=== PATIENT | male | born 1970 | race Caucasian/White ===

== ENCOUNTER 2021-09-22 09:28 | Inpatient (IN) | payer OTHER ==
[2021-09-22] MEDS ORDERED: NICOTINE 10 MG CARTRIDGE (INHALER) IH PRN (10:08)
[2021-09-22] MEDS ORDERED: METHOCARBAMOL 500 MG TABLET PO PRN (10:08)
[2021-09-22] MEDS ORDERED: ACETAMINOPHEN 325 MG TABLET (FP) PO PRN ×2 (10:08)
[2021-09-22] MEDS ORDERED: MAGNESIUM HYDROX 2400MG/30ML ORAL SUSPENSION 30 ML CUP PO PRN (10:08)
[2021-09-22] MEDS ORDERED: LOPERAMIDE HCL 2 MG CAPSULE PO PRN (10:08)
[2021-09-22] MEDS ORDERED: MAGNESIUM CITRATE 300 ML BOTTLE PO PRN (10:08)
[2021-09-22] MEDS ORDERED: chlordiazePOXIDE HCL 25 MG CAPSULE PO PRN (10:08)
[2021-09-22] MEDS ORDERED: ONDANSETRON *ODT* 4 MG TABLET SL PRN (10:08)
[2021-09-22] MEDS ORDERED: MAG HYDROX/AL HYDROX/SIMETH 30 ML UNIT-DOSE CUP PO PRN (10:08)
[2021-09-22] MEDS ORDERED: BISMUTH SUBSALICYLATE 524 MG/30 ML PO PRN (10:08)
[2021-09-22] MEDS ORDERED: MENTHOL/PHENOL 1 EACH UD MM PRN (10:08)
[2021-09-22 10:42] VITALS: BMI 28.6
[2021-09-22] MEDS: chlordiazePOXIDE HCL 25 MG CAPSULE PO SCH ×4 (11:01→22:37)
[2021-09-22] MEDS: NICOTINE 14 MG/24 HOURS TOPICAL PATCH TD SCH (12:37)
[2021-09-22] MEDS: PRENATAL VITAMINS W/ FOLIC ACID TABLET (FP) PO SCH (12:38)
[2021-09-22] MEDS: hydrOXYzine PAMOATE 25 MG CAPSULE (FP) PO SCH ×3 (15:14→22:27)
[2021-09-22 17:18] LABS: CALCIUM 8.6 mg/dL (8.5-10.1)
[2021-09-22 17:19] LABS: ALBUMIN 3.8 g/dl (3.4-5.0); BLOOD UREA NITROGEN 7.3 mg/dL (7-18)
[2021-09-22 17:22] LABS: CREATININE 0.9 mg/dL (0.55-1.3)
[2021-09-22 17:23] LABS: BILIRUBIN,TOTAL 0.9 mg/dL (0.2-1)
[2021-09-22 17:24] LABS: TOT PROT 7.2 g/dl (6.4-8.2)
[2021-09-22 17:25] LABS: HEMATOCRIT 32.7 % (35.4-49); HEMOGLOBIN 11.5 GM/dL (11.7-16.9); MCH 34.8 pg (25.7-33.7); MCHC 35.1 g/dl (32.0-35.9); MEAN CELL VOLUME 99.1 fl (80-96); MEAN PLT VOLUME 8.3 fl (7.5-11.1); PLATELET COUNT 145 10^3/uL (134-434); RDW 13.1 % (11.9-15.9); WHITE BLOOD COUNT 4.9 K/mm3 (4.0-10.0)
[2021-09-22] MEDS ORDERED: TRIMETHOBENZAMIDE HCL 300 MG CAPSULE PO PRN (18:09)
[2021-09-22] MEDS: MELATONIN 5 MG TABLETS PO SCH ×2 (22:27→22:36)
[2021-09-22] MEDS: THIAMINE HCL 100 MG TABLET (FP) PO SCH ×2 (22:27→22:37)
[2021-09-23] MEDS: hydrOXYzine PAMOATE 25 MG CAPSULE (FP) PO SCH ×5 (06:26→22:35)
[2021-09-23] MEDS: chlordiazePOXIDE HCL 25 MG CAPSULE PO SCH ×4 (06:27→22:35)
[2021-09-23] MEDS: NICOTINE 14 MG/24 HOURS TOPICAL PATCH TD SCH (10:50)
[2021-09-23] MEDS: PRENATAL VITAMINS W/ FOLIC ACID TABLET (FP) PO SCH (10:51)
[2021-09-23] MEDS: THIAMINE HCL 100 MG TABLET (FP) PO SCH (22:35)
[2021-09-23] MEDS: MELATONIN 5 MG TABLETS PO SCH (22:35)
[2021-09-24] MEDS: hydrOXYzine PAMOATE 25 MG CAPSULE (FP) PO SCH ×5 (05:38→22:37)
[2021-09-24] MEDS: chlordiazePOXIDE HCL 25 MG CAPSULE PO SCH ×4 (05:39→22:36)
[2021-09-24] MEDS: NICOTINE 14 MG/24 HOURS TOPICAL PATCH TD SCH (10:42)
[2021-09-24] MEDS: PRENATAL VITAMINS W/ FOLIC ACID TABLET (FP) PO SCH (10:42)
[2021-09-24 14:08] LABS: SARS-CoV-2 NAA Not Detected (Not Detected)
[2021-09-24] MEDS: THIAMINE HCL 100 MG TABLET (FP) PO SCH (22:37)
[2021-09-24] MEDS: MELATONIN 5 MG TABLETS PO SCH (22:37)
[2021-09-25] MEDS ORDERED: chlordiazePOXIDE HCL 10 MG CAPSULE PO PRN
[2021-09-25] MEDS: chlordiazePOXIDE HCL 10 MG CAPSULE PO SCH ×4 (06:28→22:09)
[2021-09-25] MEDS: hydrOXYzine PAMOATE 25 MG CAPSULE (FP) PO SCH ×5 (06:28→22:08)
[2021-09-25] MEDS: PRENATAL VITAMINS W/ FOLIC ACID TABLET (FP) PO SCH (10:17)
[2021-09-25] MEDS: NICOTINE 14 MG/24 HOURS TOPICAL PATCH TD SCH (10:17)
[2021-09-25] MEDS: THIAMINE HCL 100 MG TABLET (FP) PO SCH (22:08)
[2021-09-25] MEDS: MELATONIN 5 MG TABLETS PO SCH (22:09)
[2021-09-26] MEDS: hydrOXYzine PAMOATE 25 MG CAPSULE (FP) PO SCH ×5 (06:16→22:28)
[2021-09-26] MEDS: chlordiazePOXIDE HCL 10 MG CAPSULE PO SCH ×2 (06:16→18:13)
[2021-09-26 09:42] LABS: GLUCOSE,FASTING 129 mg/dL (74-106)
[2021-09-26 09:45] LABS: SGOT/AST 86 U/L (15-37); SGPT/ALT 167 U/L (13-61)
[2021-09-26] MEDS: PRENATAL VITAMINS W/ FOLIC ACID TABLET (FP) PO SCH (10:12)
[2021-09-26] MEDS: NICOTINE 14 MG/24 HOURS TOPICAL PATCH TD SCH (10:13)
[2021-09-26] MEDS: IBUPROFEN 400 MG TABLET (FP) PO PRN ×2 (12:37→22:33)
[2021-09-26] MEDS: THIAMINE HCL 100 MG TABLET (FP) PO SCH (22:28)
[2021-09-26] MEDS: MELATONIN 5 MG TABLETS PO SCH (22:28)
[2021-09-27] MEDS ORDERED: chlordiazePOXIDE HCL 10 MG CAPSULE PO ONE (05:00)
[2021-09-27] MEDS: hydrOXYzine PAMOATE 25 MG CAPSULE (FP) PO SCH ×2 (06:33→10:46)
[2021-09-27 09:22] VITALS: BP 110/76; PULSE 93; TEMP 97
[2021-09-27] MEDS: NICOTINE 14 MG/24 HOURS TOPICAL PATCH TD SCH (10:45)
[2021-09-27] MEDS: PRENATAL VITAMINS W/ FOLIC ACID TABLET (FP) PO SCH (10:46)
== END 2021-09-27 13:59 | disposition other institution (70) | DRG 775 ==
LOC: YASAS 09:28 → Y6N 11:57
PROVIDERS: ADMIT Allergy & Immunology; ATTEND Allergy & Immunology
PROC: HZ2ZZZZ Detoxification Services for Substance Abuse Treatment (ICD-10-PCS; principal; 2021-09-22)
DX: F10.230 Alcohol dependence with withdrawal, uncomplicated (principal); R74.01 Elevation of levels of liver transaminase levels; Z59.00 Homelessness unspecified
CPT/HCPCS: 36415; 80053; 82947; 83036; 84450; 84460; 85027; 86780; 93005; 93010; C9803; U0003; U0005

== ENCOUNTER 2021-09-27 14:32 | Inpatient (IN) | payer OTHER ==
[~2021-09-27 14:32] MED LIST: LOPERAMIDE HCL 2 MG CAPSULE PO PRN; MAG HYDROX/AL HYDROX/SIMETH 30 ML UNIT-DOSE CUP PO PRN; MAGNESIUM CITRATE 300 ML BOTTLE PO PRN; MAGNESIUM HYDROX 2400MG/30ML ORAL SUSPENSION 30 ML CUP PO PRN; NICOTINE 10 MG CARTRIDGE (INHALER) IH PRN; P-EPHED 60MG/TRIPROLIDI 2.5MG TABLET PO PRN; guaiFENesin 200 MG/10 ML 10 ML UNIT-DOSE CUPS PO PRN
[2021-09-27] MEDS: hydrOXYzine PAMOATE 25 MG CAPSULE (FP) PO SCH ×3 (15:06→21:13)
[2021-09-27] MEDS: IBUPROFEN 400 MG TABLET (FP) PO PRN (16:06)
[2021-09-27] MEDS: MELATONIN 5 MG TABLETS PO SCH (21:13)
[2021-09-27] MEDS: THIAMINE HCL 100 MG TABLET (FP) PO SCH (21:13)
[2021-09-28] MEDS: hydrOXYzine PAMOATE 25 MG CAPSULE (FP) PO SCH ×5 (06:10→21:10)
[2021-09-28] MEDS: NICOTINE 7 MG/24 HOURS TOPICAL PATCH TD SCH (09:48)
[2021-09-28] MEDS: PRENATAL VITAMINS W/ FOLIC ACID TABLET (FP) PO SCH (09:48)
[2021-09-28] MEDS: ACETAMINOPHEN 325 MG TABLET (FP) PO PRN (21:08)
[2021-09-28] MEDS: THIAMINE HCL 100 MG TABLET (FP) PO SCH (21:10)
[2021-09-28] MEDS: MELATONIN 5 MG TABLETS PO SCH (21:10)
[2021-09-29] MEDS: hydrOXYzine PAMOATE 25 MG CAPSULE (FP) PO SCH ×5 (06:00→21:12)
[2021-09-29] MEDS: PRENATAL VITAMINS W/ FOLIC ACID TABLET (FP) PO SCH (09:57)
[2021-09-29] MEDS: NICOTINE 7 MG/24 HOURS TOPICAL PATCH TD SCH (09:57)
[2021-09-29] MEDS: ACETAMINOPHEN 325 MG TABLET (FP) PO PRN ×2 (09:58→21:57)
[2021-09-29] MEDS: MELATONIN 5 MG TABLETS PO SCH (21:12)
[2021-09-29] MEDS: THIAMINE HCL 100 MG TABLET (FP) PO SCH (21:12)
[2021-09-30] MEDS: ACETAMINOPHEN 325 MG TABLET (FP) PO PRN ×2 (06:47→21:21)
[2021-09-30] MEDS: hydrOXYzine PAMOATE 25 MG CAPSULE (FP) PO SCH ×3 (06:47→14:42)
[2021-09-30] MEDS: NICOTINE 7 MG/24 HOURS TOPICAL PATCH TD SCH (09:46)
[2021-09-30] MEDS: PRENATAL VITAMINS W/ FOLIC ACID TABLET (FP) PO SCH (09:46)
[2021-09-30] MEDS: IBUPROFEN 400 MG TABLET (FP) PO PRN (09:47)
[2021-09-30] MEDS: MELATONIN 5 MG TABLETS PO SCH (21:21)
[2021-09-30] MEDS: THIAMINE HCL 100 MG TABLET (FP) PO SCH (21:21)
[2021-10-01] MEDS: PRENATAL VITAMINS W/ FOLIC ACID TABLET (FP) PO SCH (09:52)
[2021-10-01] MEDS: NICOTINE 7 MG/24 HOURS TOPICAL PATCH TD SCH (09:52)
[2021-10-01] MEDS: IBUPROFEN 400 MG TABLET (FP) PO PRN (09:53)
[2021-10-01] MEDS: hydrOXYzine PAMOATE 25 MG CAPSULE (FP) PO PRN ×2 (09:53→21:15)
[2021-10-01] MEDS: MELATONIN 5 MG TABLETS PO SCH (21:15)
[2021-10-01] MEDS: THIAMINE HCL 100 MG TABLET (FP) PO SCH (21:15)
[2021-10-01] MEDS: ACETAMINOPHEN 325 MG TABLET (FP) PO PRN (21:15)
[2021-10-02] MEDS: PRENATAL VITAMINS W/ FOLIC ACID TABLET (FP) PO SCH (09:36)
[2021-10-02] MEDS: IBUPROFEN 400 MG TABLET (FP) PO PRN (09:37)
[2021-10-02] MEDS: NICOTINE 7 MG/24 HOURS TOPICAL PATCH TD SCH (09:37)
[2021-10-02] MEDS: hydrOXYzine PAMOATE 25 MG CAPSULE (FP) PO PRN ×2 (09:37→21:15)
[2021-10-02 18:07] LABS: SARS-CoV-2 NAA Not Detected (Not Detected)
[2021-10-02] MEDS: THIAMINE HCL 100 MG TABLET (FP) PO SCH (21:14)
[2021-10-02] MEDS: MELATONIN 5 MG TABLETS PO SCH (21:14)
[2021-10-03] MEDS: NICOTINE 7 MG/24 HOURS TOPICAL PATCH TD SCH (09:53)
[2021-10-03] MEDS: IBUPROFEN 400 MG TABLET (FP) PO PRN ×2 (09:53→21:12)
[2021-10-03] MEDS: PRENATAL VITAMINS W/ FOLIC ACID TABLET (FP) PO SCH (09:53)
[2021-10-03] MEDS: hydrOXYzine PAMOATE 25 MG CAPSULE (FP) PO PRN (09:53)
[2021-10-03] MEDS: MELATONIN 5 MG TABLETS PO SCH (21:10)
[2021-10-03] MEDS: THIAMINE HCL 100 MG TABLET (FP) PO SCH (21:11)
[2021-10-04] MEDS: NICOTINE 7 MG/24 HOURS TOPICAL PATCH TD SCH (09:41)
[2021-10-04] MEDS: PRENATAL VITAMINS W/ FOLIC ACID TABLET (FP) PO SCH (09:41)
[2021-10-04] MEDS: hydrOXYzine PAMOATE 25 MG CAPSULE (FP) PO PRN (09:42)
[2021-10-04] MEDS: IBUPROFEN 400 MG TABLET (FP) PO PRN ×2 (09:42→21:10)
[2021-10-04] MEDS: MELATONIN 5 MG TABLETS PO SCH (21:10)
[2021-10-04] MEDS: THIAMINE HCL 100 MG TABLET (FP) PO SCH (21:10)
[2021-10-05] MEDS: IBUPROFEN 400 MG TABLET (FP) PO PRN ×2 (07:05→21:17)
[2021-10-05] MEDS: PRENATAL VITAMINS W/ FOLIC ACID TABLET (FP) PO SCH (09:37)
[2021-10-05] MEDS: hydrOXYzine PAMOATE 25 MG CAPSULE (FP) PO PRN ×2 (09:37→21:18)
[2021-10-05] MEDS: NICOTINE 7 MG/24 HOURS TOPICAL PATCH TD SCH (09:37)
[2021-10-05] MEDS: THIAMINE HCL 100 MG TABLET (FP) PO SCH (21:18)
[2021-10-05] MEDS: MELATONIN 5 MG TABLETS PO SCH (21:18)
[2021-10-06] MEDS: NICOTINE 7 MG/24 HOURS TOPICAL PATCH TD SCH (09:44)
[2021-10-06] MEDS: PRENATAL VITAMINS W/ FOLIC ACID TABLET (FP) PO SCH (09:44)
[2021-10-06] MEDS: IBUPROFEN 400 MG TABLET (FP) PO PRN ×2 (09:45→21:09)
[2021-10-06] MEDS: hydrOXYzine PAMOATE 25 MG CAPSULE (FP) PO PRN ×2 (09:45→21:08)
[2021-10-06] MEDS: MELATONIN 5 MG TABLETS PO SCH (21:08)
[2021-10-06] MEDS: THIAMINE HCL 100 MG TABLET (FP) PO SCH (21:08)
[2021-10-07] MEDS: NICOTINE 7 MG/24 HOURS TOPICAL PATCH TD SCH (09:53)
[2021-10-07] MEDS: IBUPROFEN 400 MG TABLET (FP) PO PRN ×2 (09:54→21:13)
[2021-10-07] MEDS: PRENATAL VITAMINS W/ FOLIC ACID TABLET (FP) PO SCH (09:54)
[2021-10-07] MEDS: hydrOXYzine PAMOATE 25 MG CAPSULE (FP) PO PRN (09:54)
[2021-10-07] MEDS: MELATONIN 5 MG TABLETS PO SCH (21:12)
[2021-10-07] MEDS: THIAMINE HCL 100 MG TABLET (FP) PO SCH (21:12)
[2021-10-08] MEDS: PRENATAL VITAMINS W/ FOLIC ACID TABLET (FP) PO SCH (09:34)
[2021-10-08] MEDS: IBUPROFEN 400 MG TABLET (FP) PO PRN ×2 (09:35→21:04)
[2021-10-08] MEDS: NICOTINE 7 MG/24 HOURS TOPICAL PATCH TD SCH (09:36)
[2021-10-08] MEDS: MELATONIN 5 MG TABLETS PO SCH (21:04)
[2021-10-08] MEDS: THIAMINE HCL 100 MG TABLET (FP) PO SCH (21:04)
[2021-10-09] MEDS: PRENATAL VITAMINS W/ FOLIC ACID TABLET (FP) PO SCH (09:51)
[2021-10-09] MEDS: IBUPROFEN 400 MG TABLET (FP) PO PRN ×2 (09:51→22:16)
[2021-10-09] MEDS: NICOTINE 7 MG/24 HOURS TOPICAL PATCH TD SCH (09:52)
[2021-10-09] MEDS: THIAMINE HCL 100 MG TABLET (FP) PO SCH (22:15)
[2021-10-09] MEDS: MELATONIN 5 MG TABLETS PO SCH (22:16)
[2021-10-10] MEDS: PRENATAL VITAMINS W/ FOLIC ACID TABLET (FP) PO SCH (09:45)
[2021-10-10] MEDS: NICOTINE 7 MG/24 HOURS TOPICAL PATCH TD SCH (09:45)
[2021-10-10] MEDS: IBUPROFEN 400 MG TABLET (FP) PO PRN ×2 (09:46→21:19)
[2021-10-10] MEDS: MELATONIN 5 MG TABLETS PO SCH (21:20)
[2021-10-10] MEDS: THIAMINE HCL 100 MG TABLET (FP) PO SCH (21:20)
[2021-10-11] MEDS: PRENATAL VITAMINS W/ FOLIC ACID TABLET (FP) PO SCH (09:44)
[2021-10-11] MEDS: NICOTINE 7 MG/24 HOURS TOPICAL PATCH TD SCH (09:44)
[2021-10-11] MEDS: IBUPROFEN 400 MG TABLET (FP) PO PRN ×2 (09:44→21:15)
[2021-10-11] MEDS: THIAMINE HCL 100 MG TABLET (FP) PO SCH (21:14)
[2021-10-11] MEDS: MELATONIN 5 MG TABLETS PO SCH (21:15)
[2021-10-12] MEDS: NICOTINE 7 MG/24 HOURS TOPICAL PATCH TD SCH (09:45)
[2021-10-12] MEDS: PRENATAL VITAMINS W/ FOLIC ACID TABLET (FP) PO SCH (09:45)
[2021-10-12] MEDS: IBUPROFEN 400 MG TABLET (FP) PO PRN ×2 (09:46→21:18)
[2021-10-12] MEDS: THIAMINE HCL 100 MG TABLET (FP) PO SCH (21:18)
[2021-10-12] MEDS: hydrOXYzine PAMOATE 25 MG CAPSULE (FP) PO PRN (21:18)
[2021-10-12] MEDS: MELATONIN 5 MG TABLETS PO SCH (21:20)
[2021-10-13] MEDS: PRENATAL VITAMINS W/ FOLIC ACID TABLET (FP) PO SCH (10:01)
[2021-10-13] MEDS: NICOTINE 7 MG/24 HOURS TOPICAL PATCH TD SCH (10:01)
[2021-10-13] MEDS: IBUPROFEN 400 MG TABLET (FP) PO PRN ×2 (10:03→21:25)
[2021-10-13] MEDS: MELATONIN 5 MG TABLETS PO SCH (21:25)
[2021-10-13] MEDS: hydrOXYzine PAMOATE 25 MG CAPSULE (FP) PO PRN (21:25)
[2021-10-13] MEDS: THIAMINE HCL 100 MG TABLET (FP) PO SCH (21:25)
[2021-10-14] MEDS: PRENATAL VITAMINS W/ FOLIC ACID TABLET (FP) PO SCH (09:46)
[2021-10-14] MEDS: NICOTINE 7 MG/24 HOURS TOPICAL PATCH TD SCH (09:46)
[2021-10-14] MEDS: MELATONIN 5 MG TABLETS PO SCH (21:12)
[2021-10-14] MEDS: THIAMINE HCL 100 MG TABLET (FP) PO SCH (21:12)
[2021-10-15] MEDS: NICOTINE 7 MG/24 HOURS TOPICAL PATCH TD SCH (10:02)
[2021-10-15] MEDS: PRENATAL VITAMINS W/ FOLIC ACID TABLET (FP) PO SCH (10:02)
[2021-10-15] MEDS: IBUPROFEN 400 MG TABLET (FP) PO PRN ×2 (10:02→21:09)
[2021-10-15] MEDS: hydrOXYzine PAMOATE 25 MG CAPSULE (FP) PO PRN (21:09)
[2021-10-15] MEDS: THIAMINE HCL 100 MG TABLET (FP) PO SCH (21:09)
[2021-10-15] MEDS: MELATONIN 5 MG TABLETS PO SCH (21:09)
[2021-10-16] MEDS: NICOTINE 7 MG/24 HOURS TOPICAL PATCH TD SCH (09:44)
[2021-10-16] MEDS: PRENATAL VITAMINS W/ FOLIC ACID TABLET (FP) PO SCH (09:44)
[2021-10-16] MEDS: IBUPROFEN 400 MG TABLET (FP) PO PRN (09:45)
[2021-10-16] MEDS: ACETAMINOPHEN 325 MG TABLET (FP) PO PRN (21:04)
[2021-10-16] MEDS: MELATONIN 5 MG TABLETS PO SCH (21:04)
[2021-10-16] MEDS: THIAMINE HCL 100 MG TABLET (FP) PO SCH (21:04)
[2021-10-17 06:25] VITALS: BP 113/77; PULSE 72; TEMP 97.5
[2021-10-17] MEDS: PRENATAL VITAMINS W/ FOLIC ACID TABLET (FP) PO SCH (09:47)
[2021-10-17] MEDS: NICOTINE 7 MG/24 HOURS TOPICAL PATCH TD SCH (09:47)
== END 2021-10-17 13:30 | disposition home or self-care (01) | DRG 775 ==
LOC: YASAS 14:32 → Y5N 14:34
PROVIDERS: ADMIT Allergy & Immunology; ATTEND Allergy & Immunology
DX: F10.20 Alcohol dependence, uncomplicated (principal); Z59.00 Homelessness unspecified
CPT/HCPCS: 82962; C9803-CS; U0003; U0005

== ENCOUNTER 2022-01-16 08:59 | Inpatient (IN) | payer OTHER ==
[2022-01-16 10:18] VITALS: BMI 29.5
[2022-01-16] MEDS ORDERED: MAGNESIUM HYDROX 2400MG/30ML ORAL SUSPENSION 30 ML CUP PO PRN (11:49)
[2022-01-16] MEDS ORDERED: BENZOCAINE/MENTHOL (CHLORASEPTIC ) LOZENGE MM PRN (11:49)
[2022-01-16] MEDS ORDERED: IBUPROFEN 600 MG TABLET (FP) PO PRN (11:49)
[2022-01-16] MEDS ORDERED: chlordiazePOXIDE HCL 25 MG CAPSULE PO PRN (11:49)
[2022-01-16] MEDS ORDERED: METHOCARBAMOL 500 MG TABLET PO PRN (11:49)
[2022-01-16] MEDS ORDERED: BISMUTH SUBSALICYLATE 262 MG/15 ML BTL PO PRN (11:49)
[2022-01-16] MEDS ORDERED: DICYCLOMINE HCL 10 MG CAPSULE PO PRN (11:49)
[2022-01-16] MEDS ORDERED: MAG HYDROX/AL HYDROX/SIMETH 30 ML UNIT-DOSE CUP PO PRN (11:49)
[2022-01-16] MEDS ORDERED: NICOTINE 10 MG CARTRIDGE (INHALER) IH PRN (11:49)
[2022-01-16] MEDS ORDERED: MAGNESIUM CITRATE 300 ML BOTTLE PO PRN (11:49)
[2022-01-16] MEDS ORDERED: ACETAMINOPHEN 325 MG TABLET (FP) PO PRN ×2 (11:49)
[2022-01-16] MEDS ORDERED: IBUPROFEN 400 MG TABLET (FP) PO PRN (11:49)
[2022-01-16] MEDS ORDERED: LOPERAMIDE HCL 2 MG CAPSULE PO PRN (11:49)
[2022-01-16] MEDS ORDERED: ONDANSETRON *ODT* 4 MG TABLET SL PRN (11:49)
[2022-01-16] MEDS ORDERED: CALAMINE 8% TOPICAL LOTION 177 ML BOTTLE TP PRN (11:59)
[2022-01-16] MEDS: hydrOXYzine PAMOATE 25 MG CAPSULE (FP) PO SCH ×3 (13:16→23:06)
[2022-01-16] MEDS ORDERED: METOPROLOL TARTRATE 50 MG TABLET (FP) PO ONE (13:33)
[2022-01-16 21:12] VITALS: TEMP 97.1
[2022-01-16] MEDS ORDERED: MELATONIN 5 MG TABLETS PO SCH (22:00)
[2022-01-16] MEDS ORDERED: THIAMINE HCL 100 MG TABLET (FP) PO SCH (22:00)
[2022-01-16 22:24] VITALS: BP 175/100; PULSE 82
[2022-01-16] MEDS ORDERED: cloNIDine HCL 0.1 MG TABLET PO ONE (22:30)
[2022-01-16] MEDS ORDERED: chlordiazePOXIDE HCL 25 MG CAPSULE PO SCH (23:00)
[2022-01-17] MEDS ORDERED: PRENATAL VITAMINS W/ FOLIC ACID TABLET (FP) PO SCH (10:00)
[2022-01-18] MEDS ORDERED: chlordiazePOXIDE HCL 25 MG CAPSULE PO SCH (05:00)
[2022-01-19] MEDS ORDERED: chlordiazePOXIDE HCL 10 MG CAPSULE PO PRN
[2022-01-19] MEDS ORDERED: chlordiazePOXIDE HCL 10 MG CAPSULE PO SCH (05:00)
[2022-01-20] MEDS ORDERED: chlordiazePOXIDE HCL 10 MG CAPSULE PO SCH (05:00)
[2022-01-21] MEDS ORDERED: chlordiazePOXIDE HCL 10 MG CAPSULE PO ONE (05:00)
== END 2022-01-17 06:42 | disposition short-term general hospital (02) | DRG 775 ==
LOC: YASAS 08:59 → Y6N 12:30
PROVIDERS: ADMIT Allergy & Immunology; ATTEND Surgery
PROC: HZ2ZZZZ Detoxification Services for Substance Abuse Treatment (ICD-10-PCS; principal; 2022-01-16)
DX: F10.230 Alcohol dependence with withdrawal, uncomplicated (principal); U07.1 COVID-19; I10 Essential (primary) hypertension; E11.9 Type 2 diabetes mellitus without complications; S05.8X2A Other injuries of left eye and orbit, initial encounter; S09.8XXA Other specified injuries of head, initial encounter; W01.198A Fall on same level from slipping, tripping and stumbling with subsequent striking against other object, initial encounter; Y92.239 Unspecified place in hospital as the place of occurrence of the external cause; Z91.81 History of falling
CPT/HCPCS: 82962; 87811; C9803-CS; J0735; U0003; U0005

== ENCOUNTER 2022-01-16 23:50 | Inpatient (IN) | payer OTHER ==
[2022-01-16 23:59] VITALS: BMI 30.1
[2022-01-17 03:28] LABS: BASO % 0.3 % (0-2.0); EOS % 0.1 % (0-4.5); HEMATOCRIT 33.3 % (35.4-49); HEMOGLOBIN 11.5 GM/dL (11.7-16.9); LYMPH % 12.1 % (8-40); MCH 33.1 pg (25.7-33.7); MCHC 34.5 g/dl (32.0-35.9); MEAN PLT VOLUME 8.2 fl (7.5-11.1); MONO % 8.2 % (3.8-10.2); NEUT % 79.3 % (42.8-82.8); PLATELET COUNT 225 10^3/uL (134-434); RBC 3.47 M/mm3 (4.00-5.60); RDW 13.6 % (11.9-15.9); WHITE BLOOD COUNT 7.7 K/mm3 (4.0-10.0)
[2022-01-17 03:42] LABS: INR 1.08 (0.83-1.09); PROTHROMBIN TIME (PATIENT) 12.4 SEC (9.7-13.0)
[2022-01-17 03:45] LABS: ACTIVATED PTT 28.8 SECONDS (25.2-36.5)
[2022-01-17 03:47] LABS: CALCIUM 8.3 mg/dL (8.5-10.1)
[2022-01-17 03:48] LABS: ALBUMIN 3.5 g/dl (3.4-5.0); BLOOD UREA NITROGEN 6.7 mg/dL (7-18); MAGNESIUM 2.3 mg/dL (1.8-2.4)
[2022-01-17 03:51] LABS: CREATININE 0.8 mg/dL (0.55-1.3)
[2022-01-17 03:52] LABS: BILIRUBIN,TOTAL 0.7 mg/dL (0.2-1)
[2022-01-17 03:56] LABS: N-TERMINAL BNP 532.4 pg/ml (5-125)
[2022-01-17] MEDS ORDERED: ACETAMINOPHEN 325 MG TABLET (FP) PO ONE (04:18)
[2022-01-17] MEDS ORDERED: ACETAMINOPHEN 325 MG TABLET (FP) ONE (04:56)
[2022-01-17 05:08] LABS: URINE APPEARANCE CLEAR; URINE BILIRUBIN NEGATIVE (NEGATIVE); URINE COLOR ORANGE; URINE GLUCOSE (UA) NEGATIVE (NEGATIVE); URINE KETONE 1+ (NEGATIVE); URINE LEUK ESTERASE NEGATIVE (NEGATIVE); URINE NITRITE NEGATIVE (NEGATIVE); URINE PROTEIN TRACE (NEGATIVE); URINE UROBILINOGEN 0.2 mg/dL (0.2-1.0)
[2022-01-17] MEDS ORDERED: POTASSIUM CHLORIDE TABS 20 MEQ TABLET.ER (FP) PO ONE ×2 (08:51→09:09)
[2022-01-17] MEDS ORDERED: THIAMINE HCL 100 MG TABLET (FP) ONE (09:08)
[2022-01-17] MEDS ORDERED: MIRTAZAPINE 15 MG TABLET (FP) ONE (09:09)
[2022-01-17] MEDS ORDERED: levETIRAcetam 500 MG TABLET (FP) PO ONE (09:09)
[2022-01-17] MEDS ORDERED: ENOXAPARIN NA (PORCINE) 40 MG/0.4 ML DISP.SYRIN SQ ONE (09:09)
[2022-01-17] MEDS ORDERED: FOLIC ACID 1 MG TABLET (FP) ONE (09:09)
[2022-01-17] MEDS: FOLIC ACID 1 MG TABLET (FP) PO SCH (09:45)
[2022-01-17] MEDS: ENOXAPARIN NA (PORCINE) 40 MG/0.4 ML DISP.SYRIN SQ SCH (09:45)
[2022-01-17] MEDS: SODIUM CHLORIDE 1,000 ML IV SCH ×2 (09:45→22:36)
[2022-01-17] MEDS: levETIRAcetam 500 MG TABLET (FP) PO SCH ×2 (09:45→22:32)
[2022-01-17] MEDS: THIAMINE HCL 100 MG TABLET (FP) PO SCH ×2 (09:46→22:32)
[2022-01-17] MEDS: MIRTAZAPINE 15 MG TABLET (FP) PO SCH (09:46)
[2022-01-17] MEDS ORDERED: FOLIC ACID 1 MG TABLET (FP) PO SCH (10:00)
[2022-01-17] MEDS ORDERED: chlordiazePOXIDE HCL 25 MG CAPSULE PO PRN (10:02)
[2022-01-17] MEDS ORDERED: LORazepam 1 MG TABLET PO PRN (12:02)
[2022-01-17] MEDS ORDERED: LORazepam 2 MG TABLET PO SCH (17:00)
[2022-01-17] MEDS: LORazepam 1 MG TABLET PO SCH ×2 (17:57→22:32)
[2022-01-18] MEDS: LORazepam 1 MG TABLET PO SCH ×4 (05:13→22:04)
[2022-01-18] MEDS: SODIUM CHLORIDE 1,000 ML IV SCH ×3 (06:47→16:46)
[2022-01-18 09:05] LABS: HEMATOCRIT 31.8 % (35.4-49); HEMOGLOBIN 10.9 GM/dL (11.7-16.9); MCH 33.5 pg (25.7-33.7); MCHC 34.1 g/dl (32.0-35.9); MEAN CELL VOLUME 98.2 fl (80-96); MEAN PLT VOLUME 8.1 fl (7.5-11.1); PLATELET COUNT 195 10^3/uL (134-434); RBC 3.24 M/mm3 (4.00-5.60); RDW 13.9 % (11.9-15.9); WHITE BLOOD COUNT 5.9 K/mm3 (4.0-10.0)
[2022-01-18 09:17] LABS: BLOOD UREA NITROGEN 7.3 mg/dL (7-18); CALCIUM 8.2 mg/dL (8.5-10.1)
[2022-01-18 09:18] LABS: MAGNESIUM 2.3 mg/dL (1.8-2.4)
[2022-01-18 09:20] LABS: CREATININE 0.8 mg/dL (0.55-1.3)
[2022-01-18 09:21] LABS: TOT PROT 6.3 g/dl (6.4-8.2)
[2022-01-18] MEDS: levETIRAcetam 500 MG TABLET (FP) PO SCH ×2 (11:19→22:03)
[2022-01-18] MEDS: FOLIC ACID 1 MG TABLET (FP) PO SCH (11:19)
[2022-01-18] MEDS: ENOXAPARIN NA (PORCINE) 40 MG/0.4 ML DISP.SYRIN SQ SCH (11:19)
[2022-01-18] MEDS: MIRTAZAPINE 15 MG TABLET (FP) PO SCH (11:19)
[2022-01-18] MEDS: THIAMINE HCL 100 MG TABLET (FP) PO SCH ×2 (11:19→22:03)
[2022-01-18] MEDS ORDERED: THIAMINE HCL 200 MG/2 ML VIAL IVPB ONE ×2 (11:23→16:15)
[2022-01-19] MEDS: SODIUM CHLORIDE 1,000 ML IV SCH ×3 (02:51→18:28)
[2022-01-19] MEDS: LORazepam 1 MG TABLET PO SCH ×4 (05:50→23:05)
[2022-01-19 08:41] LABS: HEMATOCRIT 32.9 % (35.4-49); HEMOGLOBIN 11.1 GM/dL (11.7-16.9); RBC 3.36 M/mm3 (4.00-5.60); WHITE BLOOD COUNT 6.3 K/mm3 (4.0-10.0)
[2022-01-19 08:42] LABS: MCHC 33.8 g/dl (32.0-35.9); MEAN CELL VOLUME 97.8 fl (80-96); MEAN PLT VOLUME 8.6 fl (7.5-11.1); PLATELET COUNT 221 10^3/uL (134-434); RDW 13.8 % (11.9-15.9)
[2022-01-19 09:08] LABS: BLOOD UREA NITROGEN 9.3 mg/dL (7-18); CALCIUM 8.5 mg/dL (8.5-10.1); MAGNESIUM 2.2 mg/dL (1.8-2.4)
[2022-01-19 09:09] LABS: ALBUMIN 3.3 g/dl (3.4-5.0)
[2022-01-19 09:12] LABS: CREATININE 0.9 mg/dL (0.55-1.3); PHOSPHOROUS 4.2 mg/dL (2.5-4.9)
[2022-01-19 09:13] LABS: BILIRUBIN,TOTAL 0.7 mg/dL (0.2-1); TOT PROT 6.8 g/dl (6.4-8.2)
[2022-01-19] MEDS: ENOXAPARIN NA (PORCINE) 40 MG/0.4 ML DISP.SYRIN SQ SCH (11:05)
[2022-01-19] MEDS: levETIRAcetam 500 MG TABLET (FP) PO SCH ×2 (11:12→21:23)
[2022-01-19] MEDS: MIRTAZAPINE 15 MG TABLET (FP) PO SCH (11:12)
[2022-01-19] MEDS: FOLIC ACID 1 MG TABLET (FP) PO SCH (11:12)
[2022-01-19] MEDS: THIAMINE HCL 100 MG TABLET (FP) PO SCH ×2 (11:12→21:23)
[2022-01-20] MEDS ORDERED: LORazepam 0.5 MG TABLET PO PRN
[2022-01-20] MEDS: SODIUM CHLORIDE 1,000 ML IV SCH ×3 (03:20→19:40)
[2022-01-20] MEDS: LORazepam 0.5 MG TABLET PO SCH ×4 (04:57→22:48)
[2022-01-20] MEDS: ENOXAPARIN NA (PORCINE) 40 MG/0.4 ML DISP.SYRIN SQ SCH (09:28)
[2022-01-20] MEDS: MIRTAZAPINE 15 MG TABLET (FP) PO SCH (09:28)
[2022-01-20] MEDS: THIAMINE HCL 100 MG TABLET (FP) PO SCH ×2 (09:28→21:35)
[2022-01-20] MEDS: levETIRAcetam 500 MG TABLET (FP) PO SCH ×2 (09:28→21:35)
[2022-01-20] MEDS: FOLIC ACID 1 MG TABLET (FP) PO SCH (09:28)
[2022-01-20 10:53] LABS: BASO % 0.6 % (0-2.0); EOS % 0.8 % (0-4.5); HEMATOCRIT 35.1 % (35.4-49); HEMOGLOBIN 11.6 GM/dL (11.7-16.9); LYMPH % 20.4 % (8-40); MCHC 33.1 g/dl (32.0-35.9); MEAN CELL VOLUME 99.5 fl (80-96); MEAN PLT VOLUME 9.3 fl (7.5-11.1); MONO % 8.1 % (3.8-10.2); NEUT % 70.1 % (42.8-82.8); PLATELET COUNT 270 10^3/uL (134-434); RBC 3.53 M/mm3 (4.00-5.60); RDW 13.7 % (11.9-15.9); WHITE BLOOD COUNT 6.9 K/mm3 (4.0-10.0)
[2022-01-20 11:32] LABS: CALCIUM 9.1 mg/dL (8.5-10.1)
[2022-01-20 11:33] LABS: ALBUMIN 3.6 g/dl (3.4-5.0); BLOOD UREA NITROGEN 10.5 mg/dL (7-18); CREATININE 0.8 mg/dL (0.55-1.3); PHOSPHOROUS 4.2 mg/dL (2.5-4.9)
[2022-01-20 11:34] LABS: BILIRUBIN,TOTAL 0.8 mg/dL (0.2-1); MAGNESIUM 2.1 mg/dL (1.8-2.4)
[2022-01-20 11:35] LABS: TOT PROT 7.3 g/dl (6.4-8.2)
[2022-01-21] MEDS ORDERED: LORazepam 0.5 MG TABLET PO ONE (05:00)
[2022-01-21] MEDS: levETIRAcetam 500 MG TABLET (FP) PO SCH ×2 (09:28→21:45)
[2022-01-21] MEDS: THIAMINE HCL 100 MG TABLET (FP) PO SCH ×2 (09:28→21:45)
[2022-01-21] MEDS: ENOXAPARIN NA (PORCINE) 40 MG/0.4 ML DISP.SYRIN SQ SCH (09:28)
[2022-01-21] MEDS: SODIUM CHLORIDE 1,000 ML IV SCH ×3 (09:29→23:44)
[2022-01-21] MEDS: FOLIC ACID 1 MG TABLET (FP) PO SCH (09:29)
[2022-01-21] MEDS: MIRTAZAPINE 15 MG TABLET (FP) PO SCH (09:29)
[2022-01-21 10:10] LABS: HEMATOCRIT 34.2 % (35.4-49); HEMOGLOBIN 11.5 GM/dL (11.7-16.9); MCH 33.2 pg (25.7-33.7); MCHC 33.7 g/dl (32.0-35.9); MEAN CELL VOLUME 98.5 fl (80-96); MEAN PLT VOLUME 9.2 fl (7.5-11.1); PLATELET COUNT 288 10^3/uL (134-434); RBC 3.47 M/mm3 (4.00-5.60); RDW 13.8 % (11.9-15.9); WHITE BLOOD COUNT 5.9 K/mm3 (4.0-10.0)
[2022-01-21 10:26] LABS: ALBUMIN 3.4 g/dl (3.4-5.0); BLOOD UREA NITROGEN 11.9 mg/dL (7-18)
[2022-01-21 10:29] LABS: CREATININE 0.9 mg/dL (0.55-1.3)
[2022-01-21 10:30] LABS: BILIRUBIN,TOTAL 0.5 mg/dL (0.2-1)
[2022-01-22] MEDS ORDERED: ACETAMINOPHEN 325 MG TABLET (FP) PO PRN (01:36)
[2022-01-22] MEDS: SODIUM CHLORIDE 1,000 ML IV SCH ×3 (06:31→21:13)
[2022-01-22] MEDS: FOLIC ACID 1 MG TABLET (FP) PO SCH (09:59)
[2022-01-22] MEDS: THIAMINE HCL 100 MG TABLET (FP) PO SCH ×2 (09:59→21:12)
[2022-01-22] MEDS: ENOXAPARIN NA (PORCINE) 40 MG/0.4 ML DISP.SYRIN SQ SCH (09:59)
[2022-01-22] MEDS: levETIRAcetam 500 MG TABLET (FP) PO SCH ×2 (09:59→21:13)
[2022-01-22] MEDS: MIRTAZAPINE 15 MG TABLET (FP) PO SCH (09:59)
[2022-01-22 10:02] LABS: ALBUMIN 3.4 g/dl (3.4-5.0); BLOOD UREA NITROGEN 11.9 mg/dL (7-18)
[2022-01-22 10:05] LABS: CREATININE 0.8 mg/dL (0.55-1.3)
[2022-01-22 10:07] LABS: BILIRUBIN,TOTAL 0.3 mg/dL (0.2-1); TOT PROT 7.2 g/dl (6.4-8.2)
[2022-01-23] MEDS: levETIRAcetam 500 MG TABLET (FP) PO SCH (10:13)
[2022-01-23] MEDS: FOLIC ACID 1 MG TABLET (FP) PO SCH (10:13)
[2022-01-23] MEDS: MIRTAZAPINE 15 MG TABLET (FP) PO SCH (10:13)
[2022-01-23] MEDS: THIAMINE HCL 100 MG TABLET (FP) PO SCH (10:13)
[2022-01-23] MEDS: ENOXAPARIN NA (PORCINE) 40 MG/0.4 ML DISP.SYRIN SQ SCH (10:13)
[2022-01-23] MEDS: SODIUM CHLORIDE 1,000 ML IV SCH (10:14)
[2022-01-23 12:39] LABS: BLOOD UREA NITROGEN 9.6 mg/dL (7-18); CALCIUM 9.7 mg/dL (8.5-10.1)
[2022-01-23 12:42] LABS: CREATININE 0.9 mg/dL (0.55-1.3)
[2022-01-23 12:44] LABS: BILIRUBIN,TOTAL 0.3 mg/dL (0.2-1); TOT PROT 7.7 g/dl (6.4-8.2)
[2022-01-23 15:23] VITALS: BP 124/91; PULSE 90; TEMP 99.6
== END 2022-01-23 17:05 | disposition home or self-care (01) | DRG 775 ==
LOC: JER 23:50 → INTOOBSV 01-17 03:54 → UNDOADMOB 01-17 03:54 → JERBED 01-17 03:54 → OBSVTOIN 01-17 08:40 → J5S 01-17 14:51
PROVIDERS: ADMIT Internal Medicine; ATTEND Internal Medicine
DX: F10.230 Alcohol dependence with withdrawal, uncomplicated (principal); M62.82 Rhabdomyolysis; E87.6 Hypokalemia; U07.1 COVID-19; R94.31 Abnormal electrocardiogram [ECG] [EKG]; R74.01 Elevation of levels of liver transaminase levels; F32.A Depression, unspecified; S09.90XA Unspecified injury of head, initial encounter; W19.XXXA Unspecified fall, initial encounter; Y93.89 Activity, other specified; Y92.89 Other specified places as the place of occurrence of the external cause; Y99.8 Other external cause status
CPT/HCPCS: 36415; 70450-TC; 70486-TC; 71045-TC-FY; 72125-TC; 80053; 81003; 82550; 82553; 83605; 83735; 83880; 84100; 84443; 84484; 85025; 85027; 85610; 85730; 86140; 87086; 93005; 93010; 99285-25